=== PATIENT | female | born 1980 | race Caucasian/White ===

== ENCOUNTER 2022-10-11 09:58 | Outpatient (CLI) | payer OTHER, SELFPAY ==
--- NOTE | ~2022-10-11 | MM_ITS ---
EXAMINATION: MM screening jasson BI w devon HISTORY: Screening TECHNIQUE: Craniocaudal and mediolateral oblique 3-D tomosynthesis images were obtained and synthetic 2-D images were generated. CAD analysis was submitted and interpreted. COMPARISON: No prior mammogram is available for comparison at this institution. BREAST PARENCHYMAL COMPOSITION: Breast composed of scattered areas of fibroglandular density FINDINGS: There is focal asymmetry in the right breast in the lower outer quadrant. There is no mammo graphic evidence for malignancy in the left breast. IMPRESSION: 1. Focal right breast asymmetry, lower outer quadrant. 2. Additional spot compression and mediolateral views with possible follow-up breast ultrasound recom mended. BI-RADS Category 0: Incomplete: Needs additional imaging evaluation. Reviewed, dictated and finalized at location A. CONSTRUCTION SUPERINTENDENT IMPRESSION: 1. Focal right breast asymmetry, lower outer quadrant. 2. Additional spot compression and mediolateral views with possible follow-up b reast ultrasound recommended. BI-RADS Category 0: Incomplete: Needs additional imaging evaluation.
== END 2022-10-11 09:59 | disposition home or self-care (01) ==
PROVIDERS: PCP Physician Assistant; Visit Provider Physician Assistant
DX: Z12.31 Encounter for screening mammogram for malignant neoplasm of breast (principal); R92.8 Other abnormal and inconclusive findings on diagnostic imaging of breast
CPT/HCPCS: 77063; 77067

== ENCOUNTER 2022-11-10 11:24 | Outpatient (CLI) | payer OTHER, SELFPAY ==
--- NOTE | ~2022-11-10 | MMUS_ITS ---
EXAMINATION: MM diagnostic jasson RT w devon, US breast RT limited HISTORY: Focal asymmetry of the right breast on baseline screening mammogram TECHNIQUE: Additional 3-D tomosynthesis images of the right breast were performed and synthetic 2-D i mages were generated. CAD analysis was submitted and interpreted. High resolution limited right breas t ultrasound was performed. COMPARISON: 10/11/2022 FINDINGS: MAMMOGRAPHIC FINDINGS: A focal asymmetry in the middle third of the lower-outer breast persists but somewhat disperses with spot compression. No suspicious calcification or architectural distortion are identified. ULTRASOUND: There is no evidence of focal abnormal solid or cystic mass in the vicinity of the right breast focal asymmetry. IMPRESSION: 1. Probably benign focal asymmetry of the right breast. 2. Recommend 6 month follow-up right diagnostic mammogram and possible ultrasound BI-RADS category 3, probably benign findings. Reviewed, dictated and finalized at location A. NICAL PHOTOGRAPHER IMPRESSION: 1. Probably benign focal asymmetry of the right breast. 2. Recommend 6 month follow-up right diagnostic mammogram and possible ultrasou nd BI-RADS category 3, probably benign findings.
== END 2022-11-10 11:25 | disposition home or self-care (01) ==
LOC: ANHIMG 11:31
PROVIDERS: PCP Physician Assistant; Visit Provider Physician Assistant
DX: R92.8 Other abnormal and inconclusive findings on diagnostic imaging of breast (principal)
CPT/HCPCS: 76642; 77061; 77065; G0279

== ENCOUNTER 2023-05-14 09:20 | Outpatient (CLI) | payer OTHER, SELFPAY ==
--- NOTE | ~2023-05-14 | MMUS_ITS ---
EXAMINATION: MM diagnostic jasson RT w devon, US breast RT limited HISTORY: Six-month follow-up for probably benign focal asymmetry of the right breast TECHNIQUE: Craniocaudal, mediolateral, and mediolateral oblique 3-D tomosynthesis images of the right breast were performed and synthetic 2-D images were generated. CAD analysis was submitted and interp reted. High resolution limited right breast ultrasound was performed. COMPARISON: 11/10/2022, 10/11/2022 BREAST PARENCHYMAL COMPOSITION: There are scattered areas of fibroglandular density. FINDINGS: MAMMOGRAPHIC FINDINGS: There is stable focal asymmetry in the middle third of the lower-outer quadrant of the right breast a pproximately 7 cm from the nipple. There has been no suspicious interval change. No mass, calcificati on, or architectural distortion are identified. ULTRASOUND: There is no evidence of focal abnormal solid or cystic mass in the vicinity of the right breast focal asymmetry. IMPRESSION: 1. Stable, probably benign focal asymmetry of the right breast. 2. Recommend 6 month follow-up bilateral diagnostic mammogram and possible ultrasound BI-RADS category 3, probably benign findings. Reviewed, dictated and finalized at location D. IMPRESSION: 1. Stable, probably benign focal asymmetry of the right breast. 2. Recommend 6 month follow-up bilateral diagnostic mammogram and possible ultr asound BI-RADS category 3, probably benign findings.
== END 2023-05-14 09:21 ==
PROVIDERS: PCP Physician Assistant; Visit Provider Physician Assistant
DX: R92.8 Other abnormal and inconclusive findings on diagnostic imaging of breast (principal); N64.89 Other specified disorders of breast
CPT/HCPCS: 76642; 77061; 77065; G0279

== ENCOUNTER → 2023-12-20 08:00 | Outpatient (CLI) | payer OTHER, SELFPAY ==
--- NOTE | ~2023-12-20 | MM_ITS ---
EXAMINATION: MM diagnostic jasson BI w devon HISTORY: Follow-up breast asymmetry TECHNIQUE: Additional 3-D tomosynthesis images of the breasts were performed and synthetic 2-D images were generated. CAD analysis was submitted and interpreted. COMPARISON: Comparison to multiple prior studies sequentially, with oldest reviewed study dated 09/22. BREAST PARENCHYMAL COMPOSITION: Not dense: There are scattered areas of fibroglandular density. FINDINGS: The breasts are stable. Right breast asymmetry is unchanged. No suspicious masses, calcific ations or architectural distortion to suggest malignancy. IMPRESSION: 1. No evidence for malignancy in either breast. Stable right breast asymmetry. 2. Routine yearly screening mammogram and regular clinical breast examination are recommended. BI-RADS Category 1: Negative Reviewed, dictated and finalized at location A. TER BACKER IMPRESSION: 1. No evidence for malignancy in either breast. Stable right breast asymmetry. 2. Routine yearly screening mammogram and regular clinical breast examination a re recommended. BI-RADS Category 1: Negative
== END ==
PROVIDERS: PCP Physician Assistant; Visit Provider Physician Assistant
DX: R92.8 Other abnormal and inconclusive findings on diagnostic imaging of breast (principal)
CPT/HCPCS: 77062; 77066; G0279